=== PATIENT | male | born 1955 | race Caucasian/White ===

== ENCOUNTER 2018-09-05 05:02 | Emergency (ER) | payer SELFPAY ==
[2018-09-05 05:49] VITALS: BMI 22.3
--- NOTE | 2018-09-05 05:57 | PDOC ---
History of Present Illness - General Chief Complaint: Lightheaded Stated Complaint: DIZZY S/P CONSUMPTION OF PAIN MEDS Time Seen by Provider: 09/05/18 05:25 History Source: Patient Exam Limitations: Clinical Condition - History of Present Illness Initial Comments: 09/05/18 05:52 Patient is a 63 year old male who denies significant medical history presents with complaint of dizziness. Patient states that he has had 2 week right hip pain that began with insidious onset, without clear inciting factor (denies trauma to the area, denies prior occurrence of similar pain elsewhere). He admits taking "a small piece of a 40mg oxymorphone tablet" several hours prior to ED presentation. Patient states he received the drug from a friend. Patient endorses that he began feeling dizzy, and was barely able to stand, however denies any fall, trauma, or loss of consciousness. He admits driving himself to the hospital for further evaluation of this dizziness. Denies subjective fevers , chills, shortness of breath, chest pain, palpitations, abdominal pain, nausea , vomiting. Patient repeatedly states that he is "naturopathic" and only takes herbal supplements (turmeric, glucosamine, flaxseed oil, wheatgrass, vitamin C, vitamin E) PMH: Denies PSH: Appendectomy as a child Family history: Father: Hypertension, in his 70s Mother: Rectal CA, at 77 Medications: Denies Allergies: NKDA Social: Lives alone, retired. 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 Currently works with [employer]. Denies smoking history. Denies alcohol consumption. Denies illicit drug use. Timing/Duration: 1-3 hours Severity: moderate Past History - Travel Traveled outside of the country in the last 30 days: No - Past Medical History Allergies/Adverse Reactions: Allergies Allergy/AdvReac Type Severity Reaction Status Date / Time No Known Allergies Allergy Verified 09/05/18 05:24 Home Medications: Ambulatory Orders NK [No Known Home Medication] 11/12/15 COPD: No - Surgical History Appendectomy: Yes - Suicide/Smoking/Psychosocial Hx Smoking History: Never smoked Have you smoked in the past 12 months: No Information on smoking cessation initiated: No Hx Alcohol Use: No Drug/Substance Use Hx: No Review of Systems - Review of Systems Able to Perform ROS?: Yes Constitutional: No: Chills, Diaphoresis, Fever, Weakness HEENTM: No: Recent change in vision, Throat Pain, Throat Swelling, Difficulty Swallowing Respiratory: No: Cough, Shortness of Breath, Stridor, Wheezing, Hemoptysis Cardiac (ROS): Yes: Lightheadedness. No: Chest Pain, Irregular Heart Rate, Palpitations, Chest Tightness ABD/GI: No: Abdominal Distended, Blood Streaked Bowels, Nausea, Vomiting : No: Burning, Dysuria, Flank Pain, Hematuria Musculoskeletal: Yes: Other (right hip pain) Neurological: Yes: Unsteady Gait, Dizziness *Physical Exam - Vital Signs Last Vital Signs Temp Pulse Resp BP Pulse Ox 98.4 F 90 16 148/84 100 09/05/18 05:05 09/05/18 05:05 09/05/18 05:05 09/05/18 05:05 09/05/18 05:05 - Physical Exam General Appearance: Yes: Disheveled. No: Appropriately Dressed, Apparent Distress HEENT: positive: EOMI, STACIE, Other (normocephalic, atraumatic). negative: Photophobia, Scleral Icterus (R), Scleral Icterus (L), Pharyngeal Erythema, Tonsillar Exudate Neck: positive: Trachea midline, Supple. negative: Stridor, Lymphadenopathy (R) , Lymphadenopathy (L), Rigidity Respiratory/Chest: positive: Lungs Clear, Normal Breath Sounds. negative: Respiratory Distress, Labored Respiration, Crackles, Rales, Rhonchi, Stridor, Wheezing Cardiovascular: positive: Regular Rhythm, Regular Rate, S1, S2. negative: Murmur Gastrointestinal/Abdominal: positive: Flat, Soft. negative: Guarding, Rebound, Tenderness Neurologic: positive: traffic incident management manager II-XII NML intact, Alert, Motor Strength 5/5, Other ( oriented to self, person, place, time) ED Treatment Course - LABORATORY CBC & Chemistry Diagram: 09/05/18 05:59 09/05/18 05:59 Medical Decision Making - Medical Decision Making 09/05/18 06:10 Patient is a 63 year old male who denies significant medical history presents with complaint of dizziness. Patient endorses ingesting Oxymorphone Will evaluate for drug ingestion as likely cause of dizziness EKG, Troponin CBC, CMP, Urine toxicology, blood alcohol Right hip, pelvis radiograph Fall precautions Case signed out to Dr. Perez. *DC/Admit/Observation/Transfer Diagnosis at time of Disposition: Accidental drug ingestion - Discharge Dispostion Disposition: HOME Condition at time of disposition: Stable - Referrals - Patient Instructions Printed Discharge Instructions: DI for Accidental Ingestion -- Adult - Post Discharge Activity
--- NOTE | 2018-09-05 05:59 | PDOC ---
Attending Attestation - Resident Resident Name: Daniel Salas - ED Attending Attestation I have performed the following: I have examined & evaluated the patient, The case was reviewed & discussed with the resident, I agree w/resident's findings & plan, Exceptions are as noted - HPI HPI: 09/05/18 06:48 63M denies pmh here c/o dizziness. He states that he has been having worsening R hip px progressive over 2 weeks, denies trauma. He took a "piece" of a 40mg oxymorphone. After about an hour he states symptoms began. - Physicial Exam PE: 09/05/18 06:50 Unkempt, disheveled, NAD, AOx3 NCAT, PERRL Neck supple RRR LCTAB Abd soft, nt, nd GAMBOA, no swelling, deformities NFD - Medical Decision Making 09/05/18 06:51 Chief complaint likely 2/2 acute drug effect. Exam inconsistent with acute opiate toxidrome, questionably reliable historian f/u labs re-eval If no lab derangements and pt remains w/o toxidrome DC with pcp follow up
[2018-09-05 07:19] LABS: HEMATOCRIT 45.7 % (35.4-49); HEMOGLOBIN 15.1 GM/dL (11.7-16.9); MCH 30.8 pg (25.7-33.7); MCHC 32.9 g/dl (32.0-35.9); MEAN CELL VOLUME 93.6 fl (80-96); MEAN PLT VOLUME 10.2 fl (7.5-11.1); PLATELET COUNT 201 K/MM3 (134-434); RBC 4.88 M/mm3 (4.00-5.60); WHITE BLOOD COUNT 7.5 K/mm3 (4.0-10.0)
--- NOTE | 2018-09-05 07:27 | PDOC ---
*Physical Exam - Vital Signs Last Vital Signs Temp Pulse Resp BP Pulse Ox 98.4 F 90 16 148/84 100 09/05/18 05:05 09/05/18 05:05 09/05/18 05:05 09/05/18 05:05 09/05/18 05:05 - Physical Exam Comments: 09/05/18 07:26 In brief: This is a 63 year old male who denies significant medical history presents with complaint of dizziness.Patient endorsed ingesting Oxymorphone.Will evaluate for drug ingestion as likely cause of dizziness. Pending: EKG, Troponin CBC, CMP, Urine toxicology, blood alcohol Right hip, pelvis radiograph Fall precautions ED Treatment Course - LABORATORY CBC & Chemistry Diagram: 09/05/18 05:59 09/05/18 05:59 - ADDITIONAL ORDERS Additional order review: 09/05/18 05:59 RBC 4.88 MCV 93.6 MCHC 32.9 RDW 14.0 MPV 10.2 *DC/Admit/Observation/Transfer Diagnosis at time of Disposition: Accidental drug ingestion Qualifiers: Encounter type: initial encounter Qualified Code(s): T50.901A - Poisoning by unspecified drugs, medicaments and biological substances, accidental ( unintentional), initial encounter - Discharge Dispostion Disposition: HOME Condition at time of disposition: Stable Decision to Admit order: No - Referrals - Patient Instructions Printed Discharge Instructions: DI for Accidental Ingestion -- Adult - Post Discharge Activity
[2018-09-05 07:33] LABS: ALBUMIN 3.9 g/dl (3.4-5.0); ALK PHOS 60 U/L (45-117); ANION GAP 10 MMOL/L (8-16); BILIRUBIN,TOTAL 0.6 mg/dL (0.2-1); BLOOD UREA NITROGEN 26 mg/dL (7-18); CALCIUM 9.4 mg/dL (8.5-10.1); CHLORIDE 106 mmol/L (98-107); CO2 24 mmol/L (21-32); CREATININE 1.2 mg/dL (0.55-1.3); GLUCOSE,RANDOM 106 mg/dL (74-106); POTASSIUM 4.4 mmol/L (3.5-5.1); SGOT/AST 24 U/L (15-37); SGPT/ALT 25 U/L (13-61); SODIUM 140 mmol/L (136-145); TOT PROT 7.7 g/dl (6.4-8.2)
[2018-09-05 07:54] LABS: COCAINE, UR NEGATIVE ng/ml (CUTOFF=300); METHADONE, UR NEGATIVE ng/ml (CUTOFF=300); OPIATES, URI NEGATIVE ng/ml (CUTOFF=300); PHENCYCLIDINE,URINE NEGATIVE ng/ml (CUTOFF=25); URINE AMPHETAMINES NEGATIVE ng/ml (CUTOFF=500); URINE BARBITURATES NEGATIVE ng/ml (CUTOFF=200); URINE BENZODIAZEPINES NEGATIVE ng/ml (CUTOFF=200)
[2018-09-05 08:42] VITALS: BP 142/72; PULSE 82; TEMP 98.2
--- NOTE | 2018-09-05 13:40 | EKG ---
Test Reason : Blood Pressure : / mmHG Vent. Rate : 079 BPM Atrial Rate : 079 BPM P-R Int : 138 ms QRS Dur : 084 ms QT Int : 370 ms P-R-T Axes : 068 -62 078 degrees QTc Int : 424 ms NORMAL SINUS RHYTHM POSSIBLE LEFT ATRIAL ENLARGEMENT LEFT ANTERIOR FASCICULAR BLOCK SEPTAL INFARCT (CITED ON OR BEFORE 01-MAR-2011) ABNORMAL ECG WHEN COMPARED WITH ECG OF 01-MAR-2011 15:49, QUESTIONABLE CHANGE IN INITIAL FORCES OF SEPTAL LEADS Confirmed by MARK MCDONOUGH MD ([id number]) on 09/05/2018 1:39:56 PM Referred By: Confirmed By:MARK MCDONOUGH MD
== END 2018-09-05 09:03 | disposition home or self-care (01) ==
LOC: JER 05:02
DX: R42 Dizziness and giddiness (principal); T40.2X5A Adverse effect of other opioids, initial encounter
CPT/HCPCS: 36415; 73523-TC-FY; 80053; 80307; 82550; 84484; 85027; 93005; 93010; 99284-25

== ENCOUNTER 2024-07-24 16:39 | Emergency (ER) | payer OTHER ==
[2024-07-24 16:53] VITALS: BP 134/93; PULSE 116; RESP 18; TEMP 98.8; BMI 23.0
[2024-07-24 19:00] LABS: ABSOLUTE IMMATURE GRANULOCYTES 0.02 x10^3/uL (0.0-0.031); BASOPHILS # 0.05 x10^3/uL (0.01-0.08); EOSINOPHIL % 0.2 % (0.8-7.0); EOSINOPHILS # 0.02 x10^3/uL (0.04-0.54); HEMOGLOBIN 15.5 g/dL (13.7-17.5); MEAN CELL VOLUME 92.3 fl (79.0-92.2); MEAN PLT VOLUME 10.6 fl (9.4-12.4); MONOCYTE # 0.78 x10^3/uL (0.30-0.82); MONOCYTE % 9.4 % (5.3-12.2); PLATELET COUNT 247 x10^3/uL (163-337); RDW 13.3 % (12.2-16.6)
[2024-07-24 19:21] LABS: POTASSIUM 4.6 mmol/L (3.5-5.1)
[2024-07-24 19:22] LABS: CALCIUM 9.5 mg/dL (8.5-10.1)
[2024-07-24 19:23] LABS: ALBUMIN 4.2 g/dl (3.4-5.0); BLOOD UREA NITROGEN 18.6 mg/dL (7-18); MAGNESIUM 2.5 mg/dL (1.8-2.4)
[2024-07-24 19:25] LABS: CREATININE 1.3 mg/dL (0.55-1.3)
[2024-07-24 19:28] LABS: BILIRUBIN,TOTAL 0.7 mg/dL (0.2-1)
== END 2024-07-24 20:58 | disposition left against medical advice (07) ==
LOC: JER 16:39
DX: R00.0 Tachycardia, unspecified (principal); R09.82 Postnasal drip; R53.83 Other fatigue; R50.9 Fever, unspecified; R63.0 Anorexia
CPT/HCPCS: 0241U-QW; 36415; 71045-TC-FY; 80053; 82550; 83735; 84443; 84484; 85025; 93005; 93010; 99284-25

== ENCOUNTER 2025-02-11 07:32 | Emergency (ER) | payer OTHER ==
[2025-02-11 07:46] VITALS: BP 153/89; PULSE 97; RESP 20; TEMP 98.1; BMI 23.0
[2025-02-11] MEDS: CARBAMIDE PEROXIDE 6.5% OTIC 15 ML BOTTLE AS ONE (08:45)
[2025-02-11] MEDS ORDERED: MECLIZINE HCL 25 MG TABLET (FP) ONE (09:14)
[2025-02-11] MEDS: MECLIZINE HCL 25 MG TABLET (FP) PO ONE (09:16)
== END 2025-02-11 09:58 | disposition home or self-care (01) ==
LOC: JER 07:32
DX: H61.22 Impacted cerumen, left ear (principal); R42 Dizziness and giddiness
CPT/HCPCS: 99283-25